=== PATIENT | male | born 1950 | race Caucasian/White ===

== ENCOUNTER → 2017-12-27 | Outpatient (CLI) | payer MEDICARE, BC ==
--- NOTE | 2017-12-27 15:26 | US ---
EXAMINATION TYPE: US kidneys/renal and bladder DATE OF EXAM: 12/27/2017 COMPARISON: NONE CLINICAL HISTORY: R31.29 Microscopic Hematuria. Microscopic hematuria, history of kidney stones EXAM MEASUREMENTS: Right Kidney: 10.5 x 5.2 x 5.8 cm Left Kidney: 11.2 x 5.3 x 5.4 cm Right Kidney: dilated renal pelvis Left Kidney: 0.5cm echogenic focus lateral mid pole, 2.0 x 1.2 x 1.3cm cystic area mid pole Bladder: wnl Bilateral Jets seen: yes There is prominent right renal pelvis with calyceal extension. There is suspected 1.3 cm simple appea ring cyst centrally left kidney as there is round hypoechoic anechoic lesion with increased through t ransmission. The urinary bladder is anechoic. Bilateral ureteral jets are seen. IMPRESSION: Suspect mild right-sided hydronephrosis though distal right ureter jet is noted. Cannot exclude nonob structing left renal calculus. Consider CT evaluation.
== END | disposition home or self-care (01) ==
LOC: RADUSWWP 14:48
PROVIDERS: ATTEND Urology
DX: R31.29 Other microscopic hematuria (principal)
CPT/HCPCS: 76770

== ENCOUNTER → 2021-03-25 | Outpatient (CLI) | payer MEDICARE, BC ==
[2021-03-25 16:54] LABS: African American GFR (CKD) >90 (>60 ml/min/1.73 sqM); Blood Urea Nitrogen 13 mg/dL (9-20); Non-African American GFR(CKD) 88 (>60 ml/min/1.73 sqM)
--- NOTE | 2021-03-27 02:28 | CT ---
EXAMINATION TYPE: CT urogram wo/w con DATE OF EXAM: 03/25/2021 COMPARISON: 12/27/2017 renal ultrasound HISTORY: hematuria, hydronephrosis CT DLP: 2980.4 mGycm, Automated Exposure Control for Dose Reduction was Utilized. CONTRAST: CT scan of the abdomen and pelvis is performed with oral and without and with IV Contrast, patient in jected with 100 mL of Isovue 300. FINDINGS: LUNG BASES: No acute focal airspace opacity. No pericardial or pleural effusion. LIVER/GB: Normal liver. Status post cholecystectomy. PANCREAS: Normal. SPLEEN: Normal. ADRENALS: Normal. KIDNEYS: No hydronephrosis. No urolithiasis. Too small to characterize hypodense lesion of the lower pole of the left kidney. There is homogenous and synchronous renal parenchymal enhancement bilaterall y. There is synchronous prompt renal excretion bilaterally. URETERS/URINARY BLADDER: No evidence of urothelial thickening, abnormal enhancement, or significant u reteral obstruction. There is diffuse contrast opacification of the bilateral ureters. There is asymm etric left anterior urinary bladder wall thickening. Indention of the base of the bladder by enlarged prostate. BOWEL: No bowel obstruction or thickening. PERITONEUM: No pneumoperitoneum or ascites. Small fat-containing left inguinal hernia. LYMPH NODES: No lymphadenopathy. VASCULATURE: Abdominal aorta normal in caliber. MUSCULOSKELETAL: Degenerative changes of the spine. IMPRESSION: 1. Asymmetric left anterior urinary bladder wall thickening. Recommend correlation with cystoscopy. 2. Prostatomegaly. 3. No hydronephrosis or urolithiasis.
== END | disposition home or self-care (01) ==
LOC: RADCTMAIN 15:32
PROVIDERS: ATTEND Urology
DX: N40.0 Benign prostatic hyperplasia without lower urinary tract symptoms (principal); N32.89 Other specified disorders of bladder
CPT/HCPCS: 82565; 84520; 74178; 36415; 74400; Q9967